=== PATIENT | female | born 1945 | race Caucasian/White ===

== ENCOUNTER → 2023-05-30 10:01 | Outpatient (CLI) | payer MEDICARE, SELFPAY ==
[2023-05-30 11:18] LABS: Rheumatoid Factor < 8.6 IU/mL (<12.0)
[2023-05-31 04:41] LABS: IGA 338 mg/dL (64-422); IGG 1023 mg/dL (586-1602); IGM 176 mg/dL (26-217)
[2023-06-05 15:00] LABS: Aureobasidium pullulans IgG Negative (Negative); Micropolyspora faeni IgG Negative (Negative); Pigeon Serum IgG Negative (Negative); Thermoactinomyces sacchari IgG Negative (Negative); Thermoactinomyces vulgaris IgG Negative (Negative)
[2023-06-05 21:51] LABS: ANA Screen, IFA Positive (.)
[2023-07-01 13:10] LABS: Alpha 1 Antitrypsin 168
== END ==
PROVIDERS: Referring Provider Internal Medicine Critical Care Medicine; Visit Provider Internal Medicine Critical Care Medicine
DX: J47.9 Bronchiectasis, uncomplicated (principal); R91.8 Other nonspecific abnormal finding of lung field
CPT/HCPCS: 36415; 81332; 82103; 82784; 86038; 86331; 86430; 86602; 86606; 86609; 86671; 99215

== ENCOUNTER → 2023-06-19 09:44 | Outpatient (CLI) | payer MEDICARE, SELFPAY ==
--- NOTE | 2023-06-19 09:46 | DI.CT.S_ITS ---
PROCEDURE: CT CHEST WO CON INDICATIONS: bronchiectasis and nodules TECHNIQUE: Noncontrast 5 mm thick sections acquired from the pulmonary apices to the posterior costophrenic angles. 1 mm lung window, 5 mm thick coronal and sagittal and 7 mm axial MIP reformats were then acquired. For radiation dose reduction, the following was used: automated exposure control, adjustment of mA and/or kV according to patient size. COMPARISON: [facility], RG, CT THORAX WITH CONTRAST, 04/17/2022, 12:18. FINDINGS: Image quality: Diagnostic. Lower Neck: No enlarged lymph nodes. Thyroid: No thyroid nodules which require sonographic follow up, per consensus guidelines. Axillae: No enlarged lymph nodes. Chest Wall: Unremarkable. Bones: Unremarkable. Lungs and Pleura: No pneumothorax or pleural effusions. Decreased centrilobular nodules in the dependent right upper lobe. Stable volume loss and bronchiectasis in the right middle lobe and lingula. Stable 7 x 4 mm solid nodule in the lateral right upper lobe (series 3, image 92). Heart: Heart size is normal. No pericardial effusion. Three-vessel coronary calcifications. Annular calcification of the mitral valve. Thoracic Vessels: The aorta and pulmonary arteries demonstrate normal size. Mediastinum and Hayley: No enlarged lymph nodes. Esophagus: No wall thickening. No hiatal hernia. Upper Abdomen: Cirrhosis. IMPRESSION: Persistent but improving tree-in-bud nodules in the dependent right upper lobe. Given the presence of bronchiectasis and volume loss in the right middle lobe and lingula, findings favor non tuberculous mycobacterium infection. Stable 7 x 4 mm solid nodule in the right upper lobe. Findings are consistent with a benign nodule. Dictated by: Rangel Gale M.D. on 06/19/2023 at 12:01 Approved by: Rangel Gale M.D. on 06/19/2023 at 12:06
== END ==
LOC: CT 09:45
PROVIDERS: Referring Provider Internal Medicine Critical Care Medicine; Visit Provider Internal Medicine Critical Care Medicine
DX: J47.9 Bronchiectasis, uncomplicated (principal); R91.8 Other nonspecific abnormal finding of lung field; I25.10 Atherosclerotic heart disease of native coronary artery without angina pectoris; K74.60 Unspecified cirrhosis of liver
CPT/HCPCS: 71250

== ENCOUNTER → 2023-06-27 13:04 | Outpatient (CLI) | payer MEDICARE, SELFPAY | LOC: RESP 13:05 | PROVIDERS: Referring Provider Internal Medicine Critical Care Medicine; Visit Provider Internal Medicine Critical Care Medicine | DX: J47.9 Bronchiectasis, uncomplicated (principal) | CPT/HCPCS: 89220; 94640 ==

== ENCOUNTER → 2023-06-27 14:53 | Outpatient (CLI) | payer MEDICARE, SELFPAY | PROVIDERS: Visit Provider Internal Medicine Critical Care Medicine | DX: J47.9 Bronchiectasis, uncomplicated (principal) | CPT/HCPCS: 87116; 87206; 89220; 94640 ==

== ENCOUNTER → 2023-07-11 14:54 | Outpatient (CLI) | payer MEDICARE, SELFPAY | PROVIDERS: Referring Provider Internal Medicine Critical Care Medicine; Visit Provider Internal Medicine Critical Care Medicine | DX: J47.9 Bronchiectasis, uncomplicated (principal); J98.8 Other specified respiratory disorders | CPT/HCPCS: 94060; 94726; 94729 ==

== ENCOUNTER → 2025-03-10 11:55 | Outpatient (CLI) | payer MEDICARE, SELFPAY ==
[2025-03-10 13:17] LABS: Add Manual Diff / Slide Review NO; Hematocrit 40.3 % (36-46); Hemoglobin 13.5 g/dL (12.0-16.0); Lymphocytes Absolute Auto 1700 /uL (1100-4500); Mean Corpuscular HGB Conc 33.6 % (30-36); Mean Corpuscular Hemoglobin 31.4 PG (26-34); Mean Corpuscular Volume 93.4 fL (80-100); Platelet Count 302 X10^3/uL (150-400)
== END ==
PROVIDERS: PCP Internal Medicine; Referring Provider Internal Medicine; Visit Provider Internal Medicine
DX: J47.9 Bronchiectasis, uncomplicated (principal)
CPT/HCPCS: 36415; 82785; 85025; 86003